=== PATIENT | female | born 1965 | race Caucasian/White ===

== ENCOUNTER 2018-07-28 05:24 | Day surgery (SDC) | payer OTHER ==
[~2018-07-28] VITALS: Ht 162.6 cm; Wt 95.3 kg
[2018-07-28] MEDS ORDERED: LACTATED RINGERS 1,000 ML IV SCH (05:30)
[2018-07-28 06:49] LABS: UCG SCREEN NEGATIVE
[2018-07-28 06:51] LABS: CHLORIDE 109 mEq/L (98-107)
[2018-07-28 06:52] LABS: BASOPHILS % 0.9 % (0.0-2.0); EOSINOPHILS % 2.8 % (0.0-5.0); HEMATOCRIT. 38.6 % (36.0-48.0); LYMPHOCYTES % 41.9 % (20.0-50.0); MEAN CORPUSCULAR HEMOGLOBIN 29.6 pg (28.0-32.0); MEAN CORPUSCULAR VOLUME 87.5 fL (81.0-99.0); MEAN PLATELET VOLUME 10.1 fl (7.4-10.4); MONOCYTES % 9.9 % (2.0-8.0); NEUTROPHILS % 44.5 % (40.0-76.0); PLATELET 162 x1000/uL (130-400); RED CELL DISTRIBUTION WIDTH 13.1 % (11.6-14.6)
[2018-07-28 06:54] LABS: PARTIAL THROMBOPLASTIN TIME 26.2 sec (23.4-31.0); PROTHROMBIN TIME 10.2 sec (9.6-11.0)
[2018-07-28] MEDS ORDERED: FENTANYL CITRATE/PF 50MCG/ML 2ML VIAL ONE (07:19)
[2018-07-28] MEDS ORDERED: LIDOCAINE HCL/PF 1% 10 MG/ML 5ML VIAL ONE (07:20)
[2018-07-28] MEDS ORDERED: PROPOFOL 200MG/20ML VIAL IV ONE (07:20)
[2018-07-28] MEDS ORDERED: MIDAZOLAM HCL 2 MG/2 ML VIAL ONE (07:20)
[2018-07-28] MEDS ORDERED: ROCURONIUM BROMIDE 10MG/ML VIAL 5ML IV ONE (07:21)
[2018-07-28] MEDS ORDERED: EPHEDRINE SULFATE 50MG/ML VIAL ONE (07:24)
[2018-07-28] MEDS ORDERED: SODIUM CHLORIDE 0.9% 10ML VIAL ONE (07:24)
[2018-07-28] MEDS ORDERED: METOCLOPRAMIDE HCL 10MG/2ML VIAL ONE (07:40)
[2018-07-28] MEDS ORDERED: ONDANSETRON HCL 4MG/2ML INJ ONE (07:40)
[2018-07-28] MEDS ORDERED: SUCCINYLCHOLINE CHLORIDE 200MG/10ML IV ONE (08:20)
[2018-07-28] MEDS ORDERED: DEXAMETHASONE 4MG/ML 1ML VIAL ONE (08:42)
[2018-07-28] MEDS ORDERED: IBUPROFEN 800MG TABLET PO PRN (09:00)
[2018-07-28] MEDS ORDERED: HYDROMORPHONE HCL/PF 2MG/ML CPJ IV PRN (09:30)
[2018-07-28 10:51] VITALS: BP 98/56
== END 2018-07-28 10:55 | disposition home or self-care (01) ==
LOC: OR 05:24
PROVIDERS: ATTEND Obstetrics & Gynecology
DX: D25.9 Leiomyoma of uterus, unspecified (principal); N93.8 Other specified abnormal uterine and vaginal bleeding; N92.4 Excessive bleeding in the premenopausal period; G43.909 Migraine, unspecified, not intractable, without status migrainosus; Z82.49 Family history of ischemic heart disease and other diseases of the circulatory system; Z88.0 Allergy status to penicillin; Z79.899 Other long term (current) drug therapy
CPT/HCPCS: 36415; 58120; 80053; 81025; 85025; 85610; 85730; 88305; 93005; J0330; J1100; J2250; J2405; J2704; J2765; J3010; J3490; J7120